=== PATIENT | male | born 1980 | race Caucasian/White ===

== ENCOUNTER 2022-11-01 11:37 | Inpatient (IN) | payer BC ==
[2022-11-01] MEDS ORDERED: HYDROmorphone 1 MG/ML Syringe IVPUSH STA (12:08)
[2022-11-01] MEDS ORDERED: Ondansetron 4 MG/2 ML SDV IVPUSH ONE (12:09)
[2022-11-01] MEDS ORDERED: Sodium Chloride 0.9% 1,000 ML IV ONE (12:09)
[2022-11-01] MEDS: Sodium Chloride 0.9% 10 ML Syringe FLUSH PRN ×2 (12:16→13:04)
[2022-11-01] MEDS ORDERED: Diatrizoate Meglumine/Diatrizoate Sodium 37% 120 ML Bottle PO ONE (12:32)
[2022-11-01] MEDS ORDERED: Sodium Chloride 0.9% 10 ML Syringe FLUSH ONE (12:32)
[2022-11-01] MEDS ORDERED: Iopamidol 612 MG/ML 100 ML Bottle IVPUSH ONE (12:32)
[2022-11-01] MEDS ORDERED: Ondansetron 4 MG/2 ML SDV IV PRN (14:14)
[2022-11-01] MEDS: HYDROmorphone 0.5 MG/0.5 ML Syringe IVPUSH PRN ×3 (15:08→23:06)
[2022-11-02] MEDS: HYDROmorphone 0.5 MG/0.5 ML Syringe IVPUSH PRN ×5 (01:59→23:53)
[2022-11-02] MEDS: Sodium Chloride 0.9% 1,000 ML IV SCH ×2 (05:52→07:32)
[2022-11-02] MEDS: Nicotine 14 MG/24 Hr Patch TRDERM SCH (08:38)
[2022-11-02] MEDS: Enoxaparin 40 MG/0.4 ML Syringe SUBCUT SCH (08:39)
[2022-11-02] MEDS ORDERED: LORazepam 2 MG/ML SDV IVPUSH PRN (10:07)
[2022-11-02] MEDS ORDERED: oxyCODONE 5 MG Tab PO PRN (14:29)
[2022-11-02] MEDS: Famotidine 20 MG Tab PO SCH ×2 (15:12→20:47)
[2022-11-02] MEDS: Docusate Sodium 100 MG Cap PO SCH ×2 (15:13→20:47)
[2022-11-02] MEDS: Dextrose 5%-0.9% NaCl with KCl 1,000 ML IV SCH (15:34)
[2022-11-02] MEDS: Acetaminophen 325 MG Tab PO PRN (23:37)
[2022-11-03] MEDS: Dextrose 5%-0.9% NaCl with KCl 1,000 ML IV SCH (02:10)
[2022-11-03] MEDS: Docusate Sodium 100 MG Cap PO SCH ×2 (08:35→20:11)
[2022-11-03] MEDS: Famotidine 20 MG Tab PO SCH ×2 (08:35→20:11)
[2022-11-03] MEDS: Enoxaparin 40 MG/0.4 ML Syringe SUBCUT SCH (08:35)
[2022-11-03] MEDS: Nicotine 14 MG/24 Hr Patch TRDERM SCH (08:44)
[2022-11-03] MEDS ORDERED: Iopamidol 612 MG/ML 100 ML Bottle IVPUSH ONE (09:42)
[2022-11-03] MEDS ORDERED: Sodium Chloride 0.9% 10 ML Syringe FLUSH PRN (09:42)
[2022-11-03] MEDS ORDERED: Dextrose 5%-0.9% NaCl with KCl 1,000 ML IV SCH (10:30)
[2022-11-03] MEDS: Acetaminophen 325 MG Tab PO PRN (15:10)
[2022-11-04] MEDS: Famotidine 20 MG Tab PO SCH (08:48)
[2022-11-04] MEDS: Docusate Sodium 100 MG Cap PO SCH (08:49)
[2022-11-04] MEDS: Enoxaparin 40 MG/0.4 ML Syringe SUBCUT SCH (08:49)
[2022-11-04] MEDS: Nicotine 14 MG/24 Hr Patch TRDERM SCH (08:49)
== END 2022-11-04 09:17 | disposition home or self-care (01) | DRG 282 ==
LOC: JD.ED 11:37 → JD.MS 14:15
PROVIDERS: ADMIT Internal Medicine; ATTEND Internal Medicine
DX: K85.20 Alcohol induced acute pancreatitis without necrosis or infection (principal); F10.10 Alcohol abuse, uncomplicated; D72.829 Elevated white blood cell count, unspecified; K56.7 Ileus, unspecified; K59.00 Constipation, unspecified; F17.210 Nicotine dependence, cigarettes, uncomplicated; E86.0 Dehydration; Z79.899 Other long term (current) drug therapy
CPT/HCPCS: 36415; 74177; 74177-26; 80053; 80061; 81001; 82947; 83690; 83735; 85025; 86140; 96361; 96374; 96375; 99285; 99285-25; A9270-GY; J1170; J1650; J2405; J3480; J3490; J7030; Q9963; Q9967